=== PATIENT | male | born 1940 | race Caucasian/White ===

== ENCOUNTER → 2023-05-21 09:55 | Outpatient (REF) | payer MEDICARE, OTHER, SELFPAY | LOC: RAD 09:55 | PROVIDERS: ATTENDING PHYSICIAN Family Medicine | DX: R60.0 Localized edema (principal) | CPT/HCPCS: 93971 ==

== ENCOUNTER → 2023-09-07 10:46 | Outpatient (REF) | payer MEDICARE, OTHER, SELFPAY | LOC: RAD 10:46 | PROVIDERS: ATTENDING PHYSICIAN Nurse Practitioner Family; FAMILY PHYSICIAN Family Medicine | DX: R19.4 Change in bowel habit (principal) | CPT/HCPCS: 74019 ==

== ENCOUNTER → 2023-12-22 12:00 | Outpatient (REF) | payer MEDICARE, OTHER, SELFPAY | LOC: RAD 12:00 | PROVIDERS: ATTENDING PHYSICIAN Internal Medicine Critical Care Medicine; FAMILY PHYSICIAN Family Medicine | DX: J45.40 Moderate persistent asthma, uncomplicated (principal); J45.991 Cough variant asthma | CPT/HCPCS: 71046 ==

== ENCOUNTER 2024-12-04 12:08 | Emergency (ER) | payer MEDICARE, OTHER, SELFPAY ==
[2024-12-04 12:22] VITALS: BP 108/75
[2024-12-04 12:58] LABS: Urine Character Clear (Clear)
[2024-12-04 12:59] LABS: Hematocrit 50.7 % (39.0-52.0); Hemoglobin 16.6 g/dL (13.0-18.0); Mean Corp Hgb Conc. 32.7 g/dL (33.0-37.0); Mean Corpuscular Volume 85.1 fL (80.0-94.0); Nucleated Red Blood Cells % 0 % (-); Platelet Count 211 10^3/uL (130-400); Red Cell Dist. Width 12.7 % (11.5-14.5)
[2024-12-04 13:11] LABS: ALT (SGPT) 30 U/L (0-50); AST (SGOT) 23 U/L (17-59); Albumin 4.7 g/dl (3.5-5.0); Alkaline Phosphatase 71 U/L (38-126); Blood Urea Nitrogen 15 mg/dl (9-20); Calcium 10.2 mg/dl (8.4-10.2); Carbon Dioxide 25 mmol/L (22-30); Chloride 104 mmol/L (98-107); Glucose 123 mg/dl (70-99); Potassium 4.3 mmol/L (3.5-5.1); Sodium 137 mmol/L (135-145); Total Protein 7.2 g/dl (6.3-8.2); eGFR > 60.00
[2024-12-04 13:23] LABS: Troponin I < 0.012 ng/ml
== END 2024-12-04 16:29 | disposition left against medical advice (07) ==
LOC: EMR 12:08
PROVIDERS: EMERGENCY PHYSICIAN Emergency Medicine
DX: R42 Dizziness and giddiness (principal); Z53.21 Procedure and treatment not carried out due to patient leaving prior to being seen by health care provider
CPT/HCPCS: 80053; 81003; 84484; 85025; 93005

== ENCOUNTER → 2024-12-15 22:00 | Outpatient (REF) | payer MEDICARE, OTHER, SELFPAY | LOC: DHSLP 22:00 | PROVIDERS: ATTENDING PHYSICIAN Internal Medicine Critical Care Medicine; FAMILY PHYSICIAN Family Medicine | DX: G47.33 Obstructive sleep apnea (adult) (pediatric) (principal) | CPT/HCPCS: 95806 ==

== ENCOUNTER 2025-01-30 06:48 | Outpatient (RCR) | payer MEDICARE, OTHER, SELFPAY | END 2025-01-30 23:59 | disposition home or self-care (01) | LOC: RPT 06:48 | PROVIDERS: ATTENDING PHYSICIAN Family Medicine; FAMILY PHYSICIAN Family Medicine | DX: R42 Dizziness and giddiness (principal); Z73.6 Limitation of activities due to disability | CPT/HCPCS: 97112; 97162 ==

== ENCOUNTER 2025-02-15 12:09 | Emergency (ER) | payer MEDICARE, OTHER, SELFPAY ==
[2025-02-15 12:17] VITALS: BP 166/83
[2025-02-15 12:36] VITALS: BMI 33.9
--- NOTE | 2025-02-15 13:27 | ED.GENMED ---
History of Present Illness
General
Chief Complaint: Fall
Source: patient and spouse
Exam Limitations: none
Time Seen by Provider: 02/15/25 12:52
History of Present Illness
History of Present Illness:
Patient tripped and fell backward landing on his right lateral ribs. No syncope. Complaining of pain localized to this lower anterior rib. No head injury no neck pain no shortness of breath although it does hurt to breathe no abdominal pain no
lower extremity injuries or upper extremity injuries.
Past History
Past History
ED Past Medical History: CAD, HTN and Hypercholesterolemia
ED Past Surgical History: Cardiac (CABG), Orthopedic and Other
Social History
Tobacco: Non-smoker
Alcohol: None
Drug: None
Personal:
Living: with family
Review of Systems
Review of Systems
All Other Systems: Not applicable
ABD/GI: Reports no symptoms
Neurological: Reports no symptoms
Phy Exam
Physical Exam
Physical Exam:
TRAUMA EXAM:
VITAL SIGNS: Vital signs reviewed, cooperative
DISTRESS: No active disease
EYES: Pupils reactive, no orbital trauma
NOSE: No deformity or epistaxis
FACE AND SCALP: No scalp or facial trauma
NECK: Supple nontender
BACK: Back nontender, pelvis stable to compression
RESPIRATORY: No distress, breath sounds normal, tender lateral lower right chest wall localized. No crepitus. No ecchymosis.
CARDIAC: No murmur, pulses equal and strong
ABDOMEN: Soft nontender bowel sounds normal
SKIN: Skin intact no bleeding, color normal
EXTREMITIES: Nontender
NEUROLOGICAL: Alert, oriented, no motor deficits
PSYCH: Mood affect normal
Course
Orders/Labs/Results
Orders:
Orders
02/15/25 12:23
CR Ribs-brannon 4 Vw W/pa Chest Urgent
Comment:
Reason For Exam: fall
02/15/25 13:27
Hydrocodone 5/APAP 325 [[place] 5/325] 1 tablet PO NOW STA
Incentive Spirometry [Rx Incentive Spirometry] [RESP] Urgent
Frequency: q1h while awake
Vital Signs
Initial and Last Documented VS:
Initial Vital Signs
Temp Pulse Resp BP Pulse Ox
98.0 F 71 16 166/83 98
02/15/25 12:17 02/15/25 12:17 02/15/25 12:17 02/15/25 12:17 02/15/25 12:17
Last Documented Vital Signs
Temp Pulse Resp BP Pulse Ox
98.0 F 71 16 166/83 98
02/15/25 12:17 02/15/25 12:17 02/15/25 12:17 02/15/25 12:17 02/15/25 13:29
MDM/Problems Addressed
Differential Diagnosis Includes:
Appears to be localized rib trauma. No neck abdomen or extremity trauma. No liver or spleen issue. Breath sounds are equal. No pneumothorax. No crepitus. Pain management pulmonary toilet and follow-up.
*Radiology
Radiology exam reviewed: preliminary read by ED provider (Right eighth rib fracture. No pneumothorax) and radiology read reviewed (Seventh rib fracture. No pneumothorax)
*Pulse Oximetry
SaO2: 98
Oxygen Mode of Delivery: Room air
Patient hypoxic: no
*Critical Care Note
Total Time (30-74mins, 75-104mins- exclusive of procedures): Not Applicable
Update Note
Update Note:
Medically stable for discharge to follow-up
ED Attending Note
-
Portions of this chart may have been created with voice recognition software.� Occasional wrong word or��sound alike� substitutions may have occurred due to the inherent limitations of voice recognition software.
Discharge Plan
Departure
Patient Disposition: Home (Routine Discharge)
Date of Disposition: 02/15/25
Time of Disposition: 14:22
Patient with high blood pressure during this ER visit?: No
Discharge Problem:
Seventh rib fracture
Instructions: BLOOD PRESSURE, Rib Fracture
Prescriptions:
New
hydrocodone-acetaminophen 5-325 mg tablet
1 tab PO Q6H PRN (Reason: Pain) Qty: 14 0RF
No Action
fluticasone propion-salmeterol [Advair Diskus] 1 DISK blister with device
1 puff PO DAILY PRN (Reason: sob)
atorvastatin 20 MG tablet
20 mg PO QPM
cetirizine 10 MG tablet
10 mg PO DAILY
lorazepam 0.5 MG tablet
0.5 mg PO BID
trazodone 100 MG tablet
100 mg PO HS
nifedipine [Procardia XL] 90 MG tablet extended release 24hr
90 mg PO DAILY
omeprazole [Prilosec] 20 MG capsule,delayed release(DR/EC)
20 mg PO BID
aspirin 81 MG tablet,chewable
81 mg PO DAILY
atenolol 50 MG tablet
75 mg PO BID
finasteride 5 MG tablet
5 mg PO DAILY
omega-3 fatty acids-fish oil 1 EACH capsule
1 ea PO BID
cholecalciferol (vitamin D3) 2,000 UNIT tablet
2,000 unit PO DAILY
Lactobacillus acidophilus [Probiotic] 1 EACH capsule
1 ea PO BID
azithromycin 250 MG tablet
250 mg PO DAILY Qty: 4 0RF
prednisone 50 MG tablet
50 mg PO DAILY Qty: 5 0RF
albuterol sulfate 1 PUFF HFA aerosol inhaler
2 puff inhalation R Q4HPRN PRN (Reason: shortness of breath) Qty: 1 0RF
benzonatate 100 MG capsule
200 mg PO TIDPRN PRN (Reason: cough) Qty: 24 0RF
Referrals:
Travis Mendoza DO [Family Provider, Family Practice] - Follow up in 2-3 days
Activity Restrictions/Additional Instructions:
Use Tylenol for milder pain
Do not take Tylenol and the stronger pain medicine. There is Tylenol in both
The prescription was sent to your pharmacy
Interventions
Interventions:
*Risk Screen - Suicide Last Done: 02/15/25 12:17
*General Assessment Last Done: 02/15/25 12:17
*Neglect/Abuse Screening Last Done: 02/15/25 12:17
*ED- Fall Risk Assessment Last Done: 02/15/25 12:22
*Nursing Disposition Last Done: 02/15/25 14:30
ED-Musculoskeletal Assessment Last Done: 02/15/25 12:37
ED- Neurological Assessment Last Done: 02/15/25 12:37
ED-Skin Assessment Last Done: 02/15/25 12:37
Discharge Date and Time
Discharge Date/Time: 02/15/25 14:30
Print Language: BAHRAINI
[2025-02-15] MEDS: NORCO 5/325 1 TABLET PO (14:05)
== END 2025-02-15 14:30 | disposition home or self-care (01) ==
LOC: EMR 12:09
PROVIDERS: EMERGENCY PHYSICIAN Emergency Medicine; FAMILY PHYSICIAN Family Medicine
DX: S22.31XA Fracture of one rib, right side, initial encounter for closed fracture (principal); W01.0XXA Fall on same level from slipping, tripping and stumbling without subsequent striking against object, initial encounter; I10 Essential (primary) hypertension; I25.10 Atherosclerotic heart disease of native coronary artery without angina pectoris; E78.00 Pure hypercholesterolemia, unspecified; Z95.1 Presence of aortocoronary bypass graft
CPT/HCPCS: 99283; 71111